=== PATIENT | female | born 1995 | race Caucasian/White ===

== ENCOUNTER 2018-03-24 10:43 | Outpatient (CLI) | payer OTHER ==
--- NOTE | 2018-03-24 14:04 | ULT ---
OB ULTRASOUND: HISTORY: anatomy. COMPARISON: None. TECHNIQUE: Sagittal and transverse imaging of the gravid uterus is performed. FINDINGS: The cervix is closed and measures 4.6 cm. There is a posterior placenta that appears to be low lying , approximately 1.7 cm from the inner cervical os. presentation is transverse with head to maternal left. Subsequently, the lie changed to breech. Single intrauterine gestation with heart tones at a rate of 147 beats per minute. BIOMETRY: BPD: 4.35 cm (19 weeks 2 days). HEAD CIRCUMFERENCE: 16.93 cm (19 weeks 4 days). ABDOMINAL CIRCUMFERENCE: 14.11 cm (19 weeks 4 days). FEMUR LENGTH: 3.02 cm (19 weeks 3 days). Average age by sonography is 19 weeks 4 days. Estimated weight is 292 g, plus or minus 43 g. Amniotic fluid index is 9.48 cm. SURVEY: The following structures are noted and appear to be appropriate: Four-chamber heart, longitudinal sp ine, stomach, lateral ventricle, cerebellum, cord insertion, bladder, three-vessel cord, extremities, nose, and lips. Limited evaluation of the kidneys. IMPRESSION: 1. Single intrauterine gestation with heart tones. Average age by sonography is 19 weeks 4 da ys. 2. Low lying posterior placenta. Continued surveillance is recommended. 3. Incomplete survey. Neither kidney is appreciated. Follow-up imaging is recommended. POS: [facility]
== END 2018-03-24 10:44 | disposition home or self-care (01) ==
LOC: BICULT 10:43
PROVIDERS: ATTEND Family Medicine
DX: Z34.02 Encounter for supervision of normal first pregnancy, second trimester (principal); O44.42 Low lying placenta NOS or without hemorrhage, second trimester
CPT/HCPCS: 76805

== ENCOUNTER 2018-05-23 15:33 | Outpatient (CLI) | payer OTHER ==
--- NOTE | 2018-05-23 17:09 | ULT ---
OB ULTRASOUND: 05/23/18 INDICATIONS: Followup low lying placenta. COMPARISON: Comparison made to ultrasound exam from 03/24/18. There continues to be a low lying posterior placenta. Dedicated images of the placenta show the place nta to extend to the os and there may be a partial previa present. The technologist demonstrated vess els that appear to partially cover the internal os. Biometry measurements indicate 28 week, 5 day gestation. Biometry measurements are consistent. Amniotic fluid volume is adequate. MARTINEZ of 12.83 cm. Heart rate 142 beats per minute. Position: Transverse with head to the maternal right. IMPRESSION: Posterior low lying placenta with evidence of partial previa as described above. POS: [facility]
== END 2018-05-23 15:34 | disposition home or self-care (01) ==
LOC: BICULT 15:33
PROVIDERS: ATTEND Family Medicine
DX: O44.43 Low lying placenta NOS or without hemorrhage, third trimester (principal); Z3A.28 28 weeks gestation of pregnancy
CPT/HCPCS: 76805

== ENCOUNTER 2018-08-13 21:00 | Inpatient (IN) | payer OTHER ==
[2018-08-14 02:02] VITALS: BMI 30.3
[2018-08-14] MEDS ORDERED: Methylergonovine 0.2 MG/ML VIAL IM PRN (02:02)
[2018-08-14] MEDS ORDERED: HYDROcodone/Acetaminophen 5/325 mg Tablet PO PRN (02:02)
[2018-08-14] MEDS ORDERED: Misoprostol 200 MCG TAB PR PRN (02:02)
[2018-08-14] MEDS ORDERED: NS / Oxytocin 40 units/1000ml 1,000 ML IV PRN (02:02)
[2018-08-14] MEDS ORDERED: Ibuprofen 800 MG TAB PO PRN (02:02)
[2018-08-14] MEDS ORDERED: Acetaminophen 500 MG TAB PO PRN (02:02)
[2018-08-14] MEDS ORDERED: Acetaminophen/Codeine 30-300mg Tablet PO PRN (02:02)
[2018-08-14] MEDS ORDERED: Lidocaine 1% (PF) 30 ML VIAL SC PRN (02:02)
[2018-08-14] MEDS ORDERED: Ondansetron PF 4 MG/2 ML Vial IVP PRN ×2 (02:02→18:17)
[2018-08-14] MEDS ORDERED: Promethazine HCl 25 MG/ML VIAL IM PRN ×2 (02:02→18:17)
[2018-08-14] MEDS ORDERED: Zolpidem Tartrate 5 MG TAB PO PRN (02:02)
[2018-08-14] MEDS ORDERED: NS w/ Oxytocin 10 units 500 ML IV SCH ×2 (02:02→06:00)
[2018-08-14] MEDS ORDERED: Butorphanol Tartrate 1 MG/ML VIAL SLOW IVP PRN (02:02)
[2018-08-14] MEDS: Lactated Ringer's 1,000 ML IV SCH ×4 (02:23→18:03)
[2018-08-14 02:41] LABS: Hemoglobin 12.5 g/dL (12.0-16.0); Mean Corpuscular HGB CONC 34.7 g/dL (32.0-36.0); Mean Corpuscular Hemoglobin 29.1 pg (27.0-31.0); Mean Corpuscular Volume 83.9 fL (78.0-98.0); Mean Platelet Volume 9.1 fL (7.4-10.4); Platelet Count 187 thou/uL (130-400); RBC Distribution Width 12.7 % (11.5-14.5); Red Blood Cell (RBC) Count 4.28 mill/uL (4.20-5.40); White Blood Cell (WBC) Count 12.9 thou/uL (4.8-10.8)
[2018-08-14] MEDS: Misoprostol 100 MCG TAB VAG SCH ×2 (02:47→05:58)
[2018-08-14 03:19] LABS: HBSAg Index 0.38 S/CO (0-0.99); Hep B Surf Ag Non-Reactive S/CO (NonReactive)
[2018-08-14 03:51] LABS: Syphilis Antibody Nonreactive (Nonreactive); Syphilis Antibody Index 0.03 S/CO (<1.00 Non-Reactive)
[2018-08-14] MEDS ORDERED: Bupivacaine/Epinephrine 0.25% 30 ML VIAL ONE (12:00)
[2018-08-14] MEDS ORDERED: Lidocaine 1.5%/Epinephrine 1:200,000 5 ML AMPUL IJ ONE (17:25)
[2018-08-14] MEDS ORDERED: Fentanyl 4 mcg/Bup 0.1% Cadd 100 ML ONE (17:26)
[2018-08-14] MEDS ORDERED: Acetaminophen 325 MG TAB PO PRN (18:17)
[2018-08-14] MEDS ORDERED: ePHEDrine/0.9% NaCl/PF SYRINGE 50 mg/10 ml SLOW IVP PRN (18:17)
[2018-08-14] MEDS ORDERED: Lactated Ringer's 500 ML IV PRN (18:17)
[2018-08-14] MEDS ORDERED: Naloxone HCl 0.4 mg/ml Vial IVP PRN ×2 (18:17)
[2018-08-14] MEDS ORDERED: Eucerin (Mineral Oil/Petrolatum,White) 30 gm Jar TOP PRN (18:17)
[2018-08-14] MEDS ORDERED: diphenhydrAMINE 50 MG/ML VIAL IVP PRN (18:17)
[2018-08-14] MEDS ORDERED: Fentanyl 4 mcg/Bupivacaine 0.1% Cassette 100 ML EPIDURAL SCH (18:30)
[2018-08-14] MEDS ORDERED: Communication Order-Pharmacy FS SCH (18:30)
[2018-08-15] MEDS ORDERED: Fentanyl 4 mcg/Bup 0.1% Cadd 100 ML ONE (01:07)
[2018-08-15] MEDS: Lactated Ringer's 1,000 ML IV SCH (01:25)
[2018-08-15 04:34] LABS: Actual Bicarbonate (HCO3a) 17.8 mEq/L (22-28); Base Excess (BEa) -7.6 mEq/L (-2.0 to +3.0)
--- NOTE | 2018-08-15 05:35 | CON ---
DATE OF CONSULTATION: 08/15/2018 PRIMARY OB: Dr. Neelima Rainey. REASON FOR CONSULTATION: The patient is a 22-year-old female, G1, P0, with an intrauterine at 39 weeks and 2 days, who was admitted for elective induction of labor. I was contacted after the patient had pushed for 3 hours and a vacuum was attempted with three pop offs. Fetus was at +2 station with a caput at the introitus. heart tones were in the 140s with moderate long-term variability and positive 15 x 15 accelerations with decelerations with the contractions down into the 100s to one teens. Evaluating the fetus, baby was in VINICIO with posterior sutures clearly palpable at 10 o'clock. Evaluating the fetus, there was a lot of caput present with a thick perineum. The head did feel like it was descending below the pubic bone. After evaluating, mother had good anesthesia with epidural, though she did feel a lot of pressure at the perineum with the evaluation. After discussing the nature the pop offs with Dr. Neelima Rainey, she had one pop off after 3 contractions and the 2 subsequent pop offs were sequential and there is question about how well the suction was holding. After evaluating the fetus and discussing with Dr. Rainey and the family, I felt given the situation that it was reasonable to offer one more attempt for a vacuum-assisted vaginal delivery versus a . After discussing these options with the family, they did want to attempt a vacuum one more time and should it pop off again, the plan would be to proceed with . After clearly identifying the posterior suture and that the patient had a Arreola and good anesthesia, the vacuum cup was then placed at the midline and at the beginning of the posterior suture, placing the cup very posterior with a constant pressure along the posterior fourchette attempting to make room for the head. Once the contraction came, a continuous posterior directing pull was then made in conjunction with the strong pushing bringing the head into better position and progressing through to the +3 station with a second contraction, the vacuum was reinflated and the head was then pulled to the point of nearly and the suction was removed. At this point, the fetus was delivered spontaneously with maternal effort alone under the direction of Dr. Neelima Rainey. For other details revolving around the delivery, please refer to Dr. Neelima Redd's delivery note, but in short, fetus was delivered successfully and shortly after had a good cry with good tone. Apgars are not immediately available at the time of dictation. Of note, the head does have a superficial laceration. It is unclear at what point in time this was created, but is superficial only, the surface layers of the skin. There is no active bleeding at the site, just a lot of swelling. Job ID: [id number]
--- NOTE | 2018-08-15 06:49 | OP ---
DATE OF PROCEDURE: 08/15/2018 PREOPERATIVE DIAGNOSIS: Term intrauterine in labor. POSTOPERATIVE DIAGNOSES: Term intrauterine in labor, status post delivery with maternal exhaustion and vacuum extraction. PROCEDURE PERFORMED: Normal spontaneous vaginal delivery with vacuum assist and repair of second-degree midline laceration. KETTLEMAN: Surinder Horta MD. ANESTHESIA: Epidural anesthetic. COMPLICATIONS: No complications. DESCRIPTION OF PROCEDURE: The patient progressed to labor and became complete with pushing effort approximately 1 hour and 40 minutes. I was called in by Nursing due to minimal progression for the past 45 minutes in spite of good pushing effort with the patient. The patient was assessed, noted the baby was at VINICIO vertex presentation at approximately +3 station. The patient was turned over side for additional pushing approximately 30 minutes, returned, noted a +4 and patient complaining of exhaustion and difficulty with pushing. Verbal consent discussed with patient for vacuum assist including risks, benefits, and alternatives. A mushroom cup vacuum was placed without difficulty over the head. Noted the bladder that had been emptied with a red rubber catheter and patient continued to push for approximately 5 additional contractions with some progression to the introitus. At that time, noted that vacuum had 3 pop-offs, noted heart tones remained in the 130s to 150s, category I strip with some mild variable decelerations with contractions. The patient continued to push independently and again noted minimal progression. Options were discussed with the patient including re-application of vacuum with risks and benefits versus section. The patient opted for re-application of vacuum. Dr. Horta also examined the patient, agreed with management and discussed with the patient. Vacuum was re-applied, and with 2 contractions, with a downward pressure with a vacuum, baby did deliver from vertex presentation. The was placed on the mother's abdomen with warm blanket, was suctioned and dried. Cord was clamped and cut, and the infant was handed to the care of the Neonatology team. Noted the baby did breathe and cry spontaneously. The patient was tolerating the procedure very well. A section of cord was excised for cord gases. Additional cord blood was then obtained and placenta delivered spontaneously and appeared intact. Noted there was a second-degree midline laceration with very minimal bleeding which was sutured with 3-0 chromic. Hemostasis was adequate and again noted very minimal bleeding. The patient tolerated the procedure very well. Noted the baby is a viable male , weight is pending, Apgars 7 at 1 minute and 8 at 5 minutes. Noted there was some bogginess to the scalp, most likely subtle hematoma, will be observed closely, it had been by the Nursery team. Cord gases revealed a pH of 7.3, QBL was 207 mL. The patient tolerated the procedure well and at this time, holding and bonding with baby skin to skin. Job ID: [id number]
[2018-08-15] MEDS ORDERED: diphenhydrAMINE 25 MG CAP PO PRN (08:30)
[2018-08-15] MEDS ORDERED: HYDROcodone/Acetaminophen 5/325 mg Tablet PO PRN (08:30)
[2018-08-15] MEDS ORDERED: Preparation H Ointment 28 GM TUBE PR PRN (08:30)
[2018-08-15] MEDS ORDERED: NS / Oxytocin 40 units/1000ml 1,000 ML IV SCH (08:30)
[2018-08-15] MEDS ORDERED: Ondansetron PF 4 MG/2 ML Vial IVP PRN (08:30)
[2018-08-15] MEDS ORDERED: Milk Of Magnesia 30 ML UDCUP PO PRN (08:30)
[2018-08-15] MEDS ORDERED: Bisacodyl 10 MG SUPP PR PRN (08:30)
[2018-08-15] MEDS ORDERED: Acetaminophen/Codeine 30-300mg Tablet PO PRN (08:30)
[2018-08-15] MEDS ORDERED: Lanolin Ointment 7 GM TUBE TOP PRN (08:30)
[2018-08-15] MEDS: Prenatal Vitamin 1 TAB PO SCH (09:01)
[2018-08-15] MEDS: Docusate Calcium (SURFAK) 240 MG CAP PO SCH ×2 (09:01→21:50)
[2018-08-15] MEDS: Ibuprofen 800 MG TAB PO SCH ×2 (13:22→21:50)
[2018-08-15] MEDS: Ferrous Sulfate 325 MG TAB PO SCH (18:27)
[2018-08-15] MEDS: Misoprostol 100 MCG TAB VAG SCH ×3 (18:28→18:30)
[2018-08-15] MEDS: Benzocaine-Menthol 82.5 ML CAN TOP PRN (19:25)
[2018-08-16] MEDS: Ibuprofen 800 MG TAB PO SCH ×3 (05:25→21:01)
[2018-08-16] MEDS: Docusate Calcium (SURFAK) 240 MG CAP PO SCH ×2 (09:52→21:02)
[2018-08-16] MEDS: Prenatal Vitamin 1 TAB PO SCH (09:52)
[2018-08-16] MEDS: Ferrous Sulfate 325 MG TAB PO SCH ×2 (09:54→14:09)
[2018-08-16] MEDS ORDERED: Triple Antibiotic Oint 1 GM Packet TOP PRN (09:57)
[2018-08-17] MEDS: Ibuprofen 800 MG TAB PO SCH ×2 (06:10→14:40)
[2018-08-17] MEDS: Ferrous Sulfate 325 MG TAB PO SCH (07:05)
[2018-08-17] MEDS: Docusate Calcium (SURFAK) 240 MG CAP PO SCH (08:23)
[2018-08-17] MEDS: Prenatal Vitamin 1 TAB PO SCH (08:23)
[2018-08-17 08:31] VITALS: BP 115/71; TEMP 98.6
[2018-08-17] MEDS: Benzocaine-Menthol 82.5 ML CAN TOP PRN (08:31)
== END 2018-08-17 15:50 | disposition home or self-care (01) | DRG 807 ==
LOC: L&D 08-14 01:12 → 3SW 08-15 17:34
PROVIDERS: ADMIT Family Medicine; ATTEND Family Medicine
PROC: 10D07Z6 Extraction of Products of Conception, Vacuum, Via Natural or Artificial Opening (ICD-10-PCS; principal; 2018-08-15)
PROC: 0KQM0ZZ Repair Perineum Muscle, Open Approach (ICD-10-PCS; 2018-08-15)
PROC: 3E0P7VZ Introduction of Hormone into Female Reproductive, Via Natural or Artificial Opening (ICD-10-PCS; 2018-08-15)
PROC: 10907ZC Drainage of Amniotic Fluid, Therapeutic from Products of Conception, Via Natural or Artificial Opening (ICD-10-PCS; 2018-08-15)
DX: O35.8XX0 Maternal care for other (suspected) fetal abnormality and damage, not applicable or unspecified (principal); Z37.0 Single live birth; O99.344 Other mental disorders complicating childbirth; F41.1 Generalized anxiety disorder; O76 Abnormality in fetal heart rate and rhythm complicating labor and delivery; O70.1 Second degree perineal laceration during delivery; Z88.2 Allergy status to sulfonamides; Z3A.39 39 weeks gestation of pregnancy
CPT/HCPCS: 36415; 51701; 51702; 82805; 85027; 86780; 86850; 86900; 86901; 87340; C1726; J3490

== ENCOUNTER 2019-05-21 15:26 | Inpatient (IN) | payer OTHER ==
[2019-05-21] MEDS ORDERED: Lorazepam 2 MG/ML VIAL ONE (15:44)
[2019-05-21] MEDS ORDERED: Ondansetron PF 4 MG/2 ML Vial ONE (15:49)
[2019-05-21 16:04] LABS: #Lymphocytes 1.3 thou/uL (1.20-3.40); #Monocytes 0.6 thou/uL (0.11-0.59); #Neutrophils 8.6 thou/uL (1.40-6.50); %Basophils 0.3 % (0.0-1.0); %Eosinophils 0.1 % (0.0-10.0); %Monocytes 5.9 % (0.0-10.0); %Neutrophils 81.7 % (42.0-75.0); Hemoglobin 14.5 g/dL (12.0-16.0); Mean Corpuscular HGB CONC 32.8 g/dL (32.0-36.0); Mean Corpuscular Hemoglobin 28.1 pg (27.0-31.0); Mean Corpuscular Volume 85.7 fL (78.0-98.0); Mean Platelet Volume 9.3 fL (7.4-10.4); Platelet Count 226 thou/uL (130-400); RBC Distribution Width 11.7 % (11.5-14.5); Red Blood Cell (RBC) Count 5.15 mill/uL (4.20-5.40); White Blood Cell (WBC) Count 10.5 thou/uL (4.8-10.8)
[2019-05-21 16:16] LABS: BHCG - Serum Negative (NEGATIVE); Pregs Control Background? CLEAR/WHITE (CLR/WHITE); Pregs Control Bar Appear? YES (CONTROL BAR)
--- NOTE | 2019-05-21 16:20 | ULT ---
EXAM: US Gallbladder RUQ CLINICAL HISTORY: Right upper arm pain.. COMPARISON: None. FINDINGS: Pancreas: The head and proximal pancreatic body have a normal echotexture. Liver: Visualized hepatic parenchyma has appropriate echotexture. No hepatic masses or intrahepatic b iliary dilatation. The contour of the hepatic margin is maintained. Right hepatic lobe measures 15.1 cm. Gallbladder: Minimal amount of sludge and mobile stones are noted within the lumen of the gallbladder . Gallbladder wall is not thickened. No pericholecystic fluid. Saab's sign:Cannot be assessed due to patient being medicated Portal Vein: Patent. Appropriate directional flow Bile ducts: Common bile duct diameter is between the 0.5 and 0.7 cm. Right kidney: Mild right-sided hydronephrosis. Right kidney measures 4.9 x 4.8 x 12.8 cm in length. IMPRESSION: 1. Sonographic evidence of cholelithiasis without definite evidence of cholecystitis. HIDA scan if cl inically warranted 2. Dilatation of the common bile duct which is far greater than expected for patient's age. If there is concern for choledocholithiasis, consider ERCP or MRCP. 3. Mild right-sided hydronephrosis. Transcribed Date/Time: 05/21/2019 5:38 PM
[2019-05-21 16:27] LABS: ALT (SGPT) 1153 U/L (8-55); AST (SGOT) 449 U/L (5-34); Albumin 4.4 g/dL (3.5-5.0); Alkaline Phosphatase 373 U/L (40-110); Anion Gap 13 mmol/L (10-20); BUN (Urea Nitrogen) 12 mg/dL (7.0-18.7); Bilirubin, Total 2.2 mg/dL (0.2-1.2); Calc. Creatinine Clearance 0 mL/min (70-130); Calcium 9.2 mg/dL (7.8-10.44); Carbon Dioxide 24 mmol/L (22-29); Chloride 106 mmol/L (98-107); Estimated GFR-MDRD 87; Globulin 2.8 g/dL (2.4-3.5); Glucose 102 mg/dL (70-105); Potassium 3.9 mmol/L (3.5-5.1); Protein, Total 7.2 g/dL (6.0-8.3); Sodium 139 mmol/L (136-145)
[2019-05-21 16:44] LABS: Bilirubin 1+ (Negative); Blood, Urine Negative (Negative); Clarity Clear (Clear); Glucose, Urine (Dipstick) Normal (Negative); Leukocyte Negative Leu/uL (Negative); Nitrite Negative (Negative); Protein, Urine (Dipstick) 10 mg/dL (Neg-Trace)
[2019-05-21 16:55] LABS: Lipase 15285 U/L (8-78)
[2019-05-21] MEDS ORDERED: Morphine 4 MG/ML VIAL ONE (17:25)
[2019-05-21] MEDS ORDERED: Pantoprazole 40 MG VIAL ONE (17:25)
[2019-05-21] MEDS ORDERED: Ketorolac Tromethamine 30 MG/ML VIAL ONE (17:30)
[2019-05-21] MEDS ORDERED: Ondansetron PF 4 MG/2 ML Vial IVP PRN (17:51)
[2019-05-21] MEDS ORDERED: Morphine 2 MG/ML SYRINGE SLOW IVP PRN (17:51)
[2019-05-21] MEDS ORDERED: Morphine 4 MG/ML VIAL SLOW IVP PRN ×2 (17:51→21:07)
[2019-05-21] MEDS ORDERED: Ondansetron ODT 8 MG TAB SL PRN ×2 (17:58→21:07)
[2019-05-21] MEDS ORDERED: Lactated Ringer's 1,000 ML IV SCH (18:00)
[2019-05-21] MEDS ORDERED: Ketorolac Tromethamine 30 MG/ML VIAL IVP SCH (18:00)
[2019-05-21] MEDS ORDERED: Sodium Chloride 0.9% (PF) 10 ML VIAL FS PRN ×2 (18:11→21:08)
--- NOTE | 2019-05-21 18:29 | HP ---
HISTORY OF PRESENT ILLNESS: Rosanne Ochoa is a 23-year-old female, 9 months , who has been experiencing most of her duration, epigastric right upper quadrant pain, back radiation, nausea. She presented to [facility], had abnormal labs, sent to [facility] today and evaluated by Dr. Llanes. She is noted to have a white count of 10.5, hemoglobin of 14. Her basic metabolic profile is normal. Bilirubin, however, is 2.2, AST 449, ALT 1153, alkaline phosphatase 373, lipase Lipase was normal yesterday. Bilirubin 2.4 yesterday. The patient's ultrasound revealed gallstones with bile duct 6 mm. The patient received one bag of IV fluids, has been saline locked. ALLERGIES: SULFA, TOBACCO NONE, ALCOHOL NONE. PAST SURGICAL HISTORY: Noncontributory except for , 1, para 1. PAST MEDICAL HISTORY: Noncontributory. SOCIAL HISTORY: She is a full-time mother. is present with her. PHYSICAL EXAMINATION: VITAL SIGNS: Blood pressure 123/86, heart rate 80, respiratory rate 18, 68 kg. HEAD, EARS EYES, NOSE AND THROAT: Unremarkable. Sclerae nonicteric. LUNGS: Clear to auscultation. CARDIAC: Regular rate and rhythm without murmur or gallop. ABDOMEN: Soft. Mild tenderness in right upper quadrant. No peritoneal signs. Lower abdomen is soft. EXTREMITIES: Unremarkable. LABORATORY DATA: As noted above. ASSESSMENT AND PLAN: Biliary pancreatitis. Recommend laparoscopic video cholecystectomy, cholangiograms, possible ERCP. I have discussed with Dr. Nair. We will check her liver function test tomorrow. Risks of infection, bleeding, visceral and biliary injury discussed, she consents. Job ID: [id number]
[2019-05-21] MEDS ORDERED: Sodium Chloride 0.9% 1,000 ML IV SCH (19:15)
[2019-05-21 19:51] VITALS: BMI 24.3
[2019-05-21] MEDS ORDERED: Enoxaparin Sodium 40 MG/0.4 ML SYRINGE SC SCH ×2 (21:00→21:15)
[2019-05-21] MEDS: Ondansetron PF 4 MG/2 ML Vial IVP PRN (21:18)
[2019-05-21] MEDS: Morphine 2 MG/ML SYRINGE SLOW IVP PRN (21:34)
[2019-05-21] MEDS: Ketorolac Tromethamine 30 MG/ML VIAL IVP SCH (23:16)
--- NOTE | 2019-05-22 00:34 | CON ---
DATE OF CONSULTATION: 05/21/2019 REASON FOR CONSULTATION: Pancreatitis biliary, and elevated liver enzymes. HISTORY OF PRESENT ILLNESS: Ms. Ochoa is a 23-year-old female, who has been sick since Saturday. She had some nausea, vomiting, epigastric pain. She has had some issues like this on and off since she had a baby earlier this year. She went to Urgent Care yesterday and they called her back today and told her LFTs were elevated and see her PCP. Her pain returned and got bad. Her has bring her here. Her primary physician called him back and actually said that was the right thing to do. She has had a couple of episodes of vomiting today. She has not voided today until she came here to the emergency room. She has been given 1 L of fluid. She had an ultrasound that showed gallstones. She had elevated liver enzymes with AST and ALT in the thousands and bilirubin just slightly up and signs of pancreatitis with lipase of 15,000. She is feeling better now after getting some morphine. She has had 1 L of IV fluids at the rate of 150 an hour. PAST MEDICAL HISTORY: Anxiety. PAST SURGICAL HISTORY: None. FAMILY HISTORY: Notable for multiple females with gallstone disease. ALLERGIES: BEESWAX AND SULFA. MEDICINES: At home; 1. Sertraline. 2. vitamins. REVIEW OF SYSTEMS: Negative for dysphagia, odynophagia, melena, hematochezia, or hematemesis. PHYSICAL EXAMINATION: VITAL SIGNS: She has been afebrile. Blood pressure of 104/63, pulse 90. GENERAL: She is in no overt distress. HEENT: Her mucous membranes are pink and moist, but pale. ABDOMEN: Soft, mildly tender in the epigastrium. Bowel sounds are quiescent. There is no palpable hepatosplenomegaly. There is shifting dullness and fluid wave. Abdomen is not tense. EXTREMITIES: No clubbing, cyanosis, or edema. NEUROLOGIC: She is alert and oriented to person, place, and time. LABORATORY DATA: White count is 10.5, hemoglobin 14.5, platelet count is 226. Sodium 139, potassium 3.5. BUN and creatinine are 12 and 0.8. Bilirubin is 2.2. AST and ALT are 449 and 1153, alkaline phosphatase is 375, lipase is 15 to 85. Labs yesterday in urgent care at 1500 hours showed bilirubin 2.4, AST and ALT of 771 and 1306. Lipase was not performed there. test was negative. Imaging ultrasound shows gallstones. Common bile duct 2.5 and 0.7 cm. No pericholecystic fluid. Pancreas is not commented on. ASSESSMENT: 1. Biliary pancreatitis. No signs of cholangitis. She is dehydrated. She will need about 4 L in the first 24 hours. She has received one so far. I have asked the nurse to give her 250 mL an hour, give her another liter of bolus now and then the 3rd liter at 250 an hour and then go to 150 an hour. 2. Recheck labs in the morning. 3. She has been seen by General Surgery. Plan is lap cholecystectomy tomorrow. If her pancreatitis is resolving, it will be reasonable. If it is not, it is really worth waiting another day or so. I suspect she will probably pass a stone and if her LFTs peak and drop, then hopefully she would just have a lap cholecystectomy and intraoperative cholangiography if she recovers. If they do not drop, she may need an ERCP. Presently, there is no signs or need for urgent ERCP. I have discussed this with the patient and her at the bedside and we will follow along with you. Job ID: [id number]
[2019-05-22] MEDS: Lactated Ringer's 1,000 ML IV SCH ×6 (04:52→20:22)
[2019-05-22] MEDS: Ketorolac Tromethamine 30 MG/ML VIAL IVP SCH ×2 (05:06→13:13)
[2019-05-22] MEDS: Ondansetron PF 4 MG/2 ML Vial IVP PRN (05:21)
[2019-05-22] MEDS: Morphine 2 MG/ML SYRINGE SLOW IVP PRN (06:25)
[2019-05-22] MEDS ORDERED: Promethazine 25 MG TAB PO PRN (07:33)
[2019-05-22 08:10] LABS: #Lymphocytes 0.8 thou/uL (1.20-3.40); #Monocytes 0.4 thou/uL (0.11-0.59); #Neutrophils 7.2 thou/uL (1.40-6.50); %Basophils 0.1 % (0.0-1.0); %Lymphocytes 9.8 % (21.0-51.0); %Monocytes 4.6 % (0.0-10.0); %Neutrophils 85.5 % (42.0-75.0); Hemoglobin 13.1 g/dL (12.0-16.0); Mean Corpuscular HGB CONC 33.6 g/dL (32.0-36.0); Mean Corpuscular Hemoglobin 29.2 pg (27.0-31.0); Mean Corpuscular Volume 86.9 fL (78.0-98.0); Platelet Count 181 thou/uL (130-400); RBC Distribution Width 11.3 % (11.5-14.5); Red Blood Cell (RBC) Count 4.49 mill/uL (4.20-5.40); White Blood Cell (WBC) Count 8.5 thou/uL (4.8-10.8)
[2019-05-22] MEDS: Pantoprazole 40 MG VIAL IVP SCH (08:22)
[2019-05-22 08:33] LABS: ALT (SGPT) 754 U/L (8-55); AST (SGOT) 163 U/L (5-34); Albumin 3.7 g/dL (3.5-5.0); Alkaline Phosphatase 318 U/L (40-110); Anion Gap 16 mmol/L (10-20); BUN (Urea Nitrogen) 15 mg/dL (7.0-18.7); Bilirubin, Total 1.5 mg/dL (0.2-1.2); Calc. Creatinine Clearance 137 mL/min (70-130); Calcium 8.3 mg/dL (7.8-10.44); Carbon Dioxide 17 mmol/L (22-29); Chloride 108 mmol/L (98-107); Estimated GFR-MDRD Greater than 90; Globulin 2.4 g/dL (2.4-3.5); Glucose 62 mg/dL (70-105); Potassium 3.8 mmol/L (3.5-5.1); Protein, Total 6.1 g/dL (6.0-8.3); Sodium 137 mmol/L (136-145)
[2019-05-22 08:46] LABS: Lipase 2381 U/L (8-78)
[2019-05-22] MEDS ORDERED: Pantoprazole 40 MG VIAL IVP SCH (09:00)
[2019-05-22] MEDS ORDERED: Midazolam HCl 2 mg/2 ml Vial ONE (09:13)
[2019-05-22] MEDS ORDERED: Bupivacaine PF 0.5% 30 ML VIAL ONE (10:29)
[2019-05-22] MEDS ORDERED: Iothalamate Meglumine 60% 50 ML VIAL FS ONE (10:29)
[2019-05-22] MEDS ORDERED: Lidocaine 1% w/Epinephrine 1:100K 20 ML VIAL ONE (10:29)
[2019-05-22] MEDS ORDERED: Famotidine/PF 20 mg/2ml Vial ONE (10:30)
[2019-05-22] MEDS ORDERED: Fentanyl 100 MCG/2 ML VIAL ONE ×2 (10:30→13:07)
--- NOTE | 2019-05-22 12:08 | RAD ---
Intraoperative cholangiogram: 05/22/2019 COMPARISON: None HISTORY: Intraoperative cholangiogram FINDINGS: 2 images from an intraoperative cholangiogram are provided. Contrast media is present withi n the common bile duct, a partially imaged cystic duct, and a partially opacified pancreatic duct. No filling defect is apparent within the opacified biliary tree. IMPRESSION: No filling defect noted within the opacified biliary tree.
[2019-05-22] MEDS ORDERED: Acetaminophen/Codeine 30-300mg Tablet PO PRN ×2 (12:23)
[2019-05-22] MEDS ORDERED: Ketorolac Tromethamine 30 MG/ML VIAL IVP PRN (12:25)
[2019-05-22] MEDS ORDERED: Promethazine HCl 25 MG/ML VIAL IM PRN (12:29)
[2019-05-22] MEDS ORDERED: Promethazine HCl 25 MG/ML VIAL SLOW IVP PRN (12:29)
[2019-05-22] MEDS ORDERED: Ondansetron HCl/PF 4 MG/2 ML Vial IVP PRN (12:29)
[2019-05-22] MEDS ORDERED: Ondansetron PF 4 MG/2 ML Vial ONE (14:02)
[2019-05-22] MEDS ORDERED: Ketorolac Tromethamine 30 MG/ML VIAL ONE (14:02)
[2019-05-22] MEDS ORDERED: Glycopyrrolate 0.2 MG/ML 5 ML SYRINGE ONE (14:02)
[2019-05-22] MEDS ORDERED: Rocuronium Bromide 10 MG/ML (10ML VIAL) ONE (14:02)
[2019-05-22] MEDS ORDERED: PROPOFOL 200 MG/20 ML VIAL ONE (14:02)
[2019-05-22] MEDS ORDERED: Lidocaine 1% PF 5 ML VIAL ONE (14:02)
[2019-05-22] MEDS ORDERED: Dexamethasone 20 MG/5 ML VIAL ONE (14:02)
[2019-05-22] MEDS ORDERED: Metoclopramide HCl 10 MG/2 ML VIAL ONE (14:02)
--- NOTE | 2019-05-22 15:25 | OP ---
DATE OF PROCEDURE: 05/22/2019 PREOPERATIVE DIAGNOSES: 1. Biliary pancreatitis. 2. Cholelithiasis. 3. lactating. POSTOPERATIVE DIAGNOSES: 1. Biliary pancreatitis. 2. Cholelithiasis. 3. lactating. PROCEDURES PERFORMED: 1. Laparoscopic video cholecystectomy. 2. Normal intraoperative cholangiogram using fluoroscopy. ANESTHESIA: General and local with 0.5% Marcaine 30 mL, mixed with 1% xylocaine 30 mL. DESCRIPTION OF PROCEDURE: The patient was taken to the operating room, where under general anesthesia, abdomen was prepared with ChloraPrep and draped in routine fashion. Local anesthetic mixture was infiltrated into the skin and subcutaneous tissue about each port site. Infraumbilical incision was made. Pneumoperitoneum to 15 mmHg was obtained with a Veress needle, replaced with a 5 port, laparoscope inserted. Right lateral subxiphoid incision was made and an 11 mm port placed, right subcostal incision was made at midclavicular entrance site and 5 port was placed. Liver appeared to be normal. Gallbladder was slightly distended with stones. Fundus was grasped at the cephalad. Infundibulum was grasped and reflected laterally. Cystic artery and duct dissected free. Critical view obtained. Cystic artery was doubly clipped proximally. Cystic duct singly clipped on the gallbladder side. An opening made in the cystic duct. Cholangiocatheter inserted. Cholangiogram was obtained using fluoroscopy, revealing free flow of contrast into a normal tapering common hepatic, common bile, and intrahepatic ducts and emptying of the duodenum. Cholangiocatheter was removed. Cystic duct was now doubly clipped and divided. Gallbladder dissected free from liver bed, obtaining good hemostasis prior to division of final peritoneal attachments. Gallbladder and contents removed, submitted to Pathology. Good hemostasis assured. Irrigant and pneumoperitoneum were evacuated. All instruments were removed. All skin incisions were approximated with interrupted subdermal 4-0 Monocryl and [place] glue applied. Job ID: [id number]
--- NOTE | 2019-05-22 17:12 | PRG ---
DATE OF SERVICE: 05/22/2019 SUBJECTIVE: Ms. Ochoa had a laparoscopic cholecystectomy today. IOCs were negative. She is still having some pain. OBJECTIVE: VITAL SIGNS: Temperature 99.9, pulse 76, blood pressure 109/71. ABDOMEN: Slightly protuberant with mild epigastric tenderness in her trocar sites. MUSCULOSKELETAL: She still has some right shoulder pain. LABORATORY DATA: Labs today; white count is 8.5, hemoglobin 13.1, platelet count 181. Bilirubin down to 1.5. AST and ALT are down to 163 and 754. Alkaline phosphatase 318. Lipase down from 15,000 to 2381. ASSESSMENT: 1. Biliary pancreatitis, resolving. 2. Status post laparoscopic cholecystectomy per Surgery today. RECOMMENDATIONS: 1. The patient will either go home this evening or tomorrow depending on how she is feeling. 2. She continues to pump and dump her breast milk as she is trying to breast-feed her baby at home. I have told her once she has not had any pain medicine for 12 hours, she can stop doing that and save the breast milk. 3. She will advance diet slowly today. It is 5 p.m., she still has not had anything p.o. besides clear liquids. She has been out of bed once. If she stays, we will re-evaluate in the morning. If she gets released this evening, she will follow up with General Surgery in the outpatient setting. Job ID: [id number]
[2019-05-22] MEDS ORDERED: Enoxaparin Sodium 40 MG/0.4 ML SYRINGE SC SCH (21:00)
[2019-05-22] MEDS: Acetaminophen 500 MG TAB PO PRN (22:36)
[2019-05-23] MEDS: Lactated Ringer's 1,000 ML IV SCH (04:41)
[2019-05-23 05:58] LABS: #Lymphocytes 1.5 thou/uL (1.20-3.40); #Monocytes 0.6 thou/uL (0.11-0.59); #Neutrophils 6.2 thou/uL (1.40-6.50); %Basophils 0.2 % (0.0-1.0); %Eosinophils 0.1 % (0.0-10.0); %Lymphocytes 18.1 % (21.0-51.0); %Monocytes 6.9 % (0.0-10.0); %Neutrophils 74.7 % (42.0-75.0); Mean Corpuscular HGB CONC 32.8 g/dL (32.0-36.0); Mean Corpuscular Hemoglobin 28.3 pg (27.0-31.0); Mean Corpuscular Volume 86.2 fL (78.0-98.0); Platelet Count 185 thou/uL (130-400); RBC Distribution Width 11.7 % (11.5-14.5); Red Blood Cell (RBC) Count 4.25 mill/uL (4.20-5.40); White Blood Cell (WBC) Count 8.3 thou/uL (4.8-10.8)
[2019-05-23 06:18] LABS: ALT (SGPT) 540 U/L (8-55); AST (SGOT) 84 U/L (5-34); Albumin 3.6 g/dL (3.5-5.0); Alkaline Phosphatase 250 U/L (40-110); Anion Gap 11 mmol/L (10-20); BUN (Urea Nitrogen) 9 mg/dL (7.0-18.7); Calc. Creatinine Clearance 126 mL/min (70-130); Calcium 8.6 mg/dL (7.8-10.44); Carbon Dioxide 24 mmol/L (22-29); Chloride 106 mmol/L (98-107); Estimated GFR-MDRD Greater than 90; Globulin 2.3 g/dL (2.4-3.5); Glucose 95 mg/dL (70-105); Potassium 4.2 mmol/L (3.5-5.1); Protein, Total 5.9 g/dL (6.0-8.3); Sodium 137 mmol/L (136-145)
[2019-05-23] MEDS: Acetaminophen 500 MG TAB PO PRN (06:56)
[2019-05-23 08:03] VITALS: BP 95/62; TEMP 98.4
[2019-05-23] MEDS: Pantoprazole 40 MG VIAL IVP SCH (08:56)
--- NOTE | 2019-05-26 19:37 | PQF ---
TOSHIA THOMASON CHRISTOPHER J MD [id number] SURG [id number] CLINICAL DOCUMENTATION CLARIFICATION FORM: POST DISCHARGE Addendum to original discharge summary date: ____ Late entry note date: __ DATE: 05/26/2019 ATTN: Rashaun Plaza Please exercise your independent, professional judgment in responding to the clarification form. Clinical indicators are provided on the bottom of this form for your review Final Diagnosis on the Pathology report: Chronic Cholecystitis, Cholelithiasis Clarification of Pathology report: Please check appropriate box(s): [ ] Agree w the pathology finding of Chronic Cholecystitis, Cholelithiasis [ ] Other explanation of pathology findings (please specify) [ ] Other diagnosis [ ] Unable to determine For continuity of documentation, please document condition throughout progress notes and discharge summary. Thank You. CLINICAL INDICATORS - SIGNS/ SYMPTOMS / LABS H&P p1 05/21 Dr Moore experiencing most of her duration, epigastric RUQ pain, neck radiation, nausea H&P p1 05/21 Dr Moore The pt' ultrasound revealed gallstones with bile duct 6mm Pathologic Diagnosis 05/25 Impression : Chronic Cholecystitis, Cholelithiasis RISK FACTORS H&P p1 05/21 Biliary Pancreatitis H&P p1 05/21 Gallstones TREATMENTS H&P p1 05/21 IV Normal Saline Operative report 05/22 Laparoscopic video cholecystectomy with intraoperative cholangiogram using fluoroscopy (This form is maintained as a part of the permanent medical record) 2014 [employer]. All Rights Reserved [email or web address] [not provided] MTDD
[2019-05-27] MEDS ORDERED: Ibuprofen 600 MG TAB PO PRN (06:00)
== END 2019-05-23 10:26 | disposition home or self-care (01) | DRG 419 ==
LOC: ERS 15:26 → SURG B 19:07
PROVIDERS: ADMIT Specialist; ATTEND Specialist
PROC: 0FT44ZZ Resection of Gallbladder, Percutaneous Endoscopic Approach (ICD-10-PCS; principal; 2019-05-22)
PROC: BF131ZZ Fluoroscopy of Gallbladder and Bile Ducts using Low Osmolar Contrast (ICD-10-PCS; 2019-05-22)
DX: K85.10 Biliary acute pancreatitis without necrosis or infection (principal); F41.9 Anxiety disorder, unspecified; E86.0 Dehydration; K80.20 Calculus of gallbladder without cholecystitis without obstruction; Z88.2 Allergy status to sulfonamides; Z91.030 Bee allergy status; Z79.899 Other long term (current) drug therapy
CPT/HCPCS: 36415; 47532; 76705; 80053; 80076; 81003; 82150; 83690; 84443; 84703; 85025; 88304; 96361; 96374; 96375; C9113; J1100; J1610; J1650; J1885; J1956; J2001; J2060; J2250; J2270; J2405; J2704; J2765; J3010; S0020; S0028

== ENCOUNTER 2020-02-01 09:32 | Outpatient (CLI) | payer OTHER ==
--- NOTE | 2020-02-01 10:24 | RAD ---
RADIOGRAPH THORACIC SPINE 3 VIWES: DATE: 02/01/2020. HISTORY: A 24-year-old female with thoracic disk disease. FINDINGS: Vertebral body heights are maintained, with no evidence of compression fracture. No scoliosis. Pedi cles appear to be grossly intact on the AP view. No high-grade degenerative disk disease. IMPRESSION: Negative. POS: [facility]
== END 2020-02-01 09:33 | disposition home or self-care (01) ==
LOC: BICRAD 09:32
PROVIDERS: ATTEND Family Medicine
DX: M51.9 Unspecified thoracic, thoracolumbar and lumbosacral intervertebral disc disorder (principal)
CPT/HCPCS: 72072

== ENCOUNTER 2020-08-11 06:45 | Outpatient (CLI) | payer OTHER | END 2020-08-11 06:46 | disposition home or self-care (01) | LOC: BICULT 06:45 | PROVIDERS: ATTEND Family Medicine | DX: O46.91 Antepartum hemorrhage, unspecified, first trimester (principal); Z3A.01 Less than 8 weeks gestation of pregnancy | CPT/HCPCS: 76856 ==